=== PATIENT | male | born 1955 | race African-American/Black ===

== ENCOUNTER 2019-11-05 08:50 | Emergency (ER) | payer MEDICAID ==
[~2019-11-05] VITALS: Ht 180.3 cm; Wt 74.0 kg
[2019-11-05] MEDS ORDERED: IBUPROFEN 600MG TABLET PO ONE (09:45)
[2019-11-05 11:00] VITALS: BP 145/89
[2019-11-05 11:16] LABS: EOSINOPHILS % 0.8 % (0.0-5.0); HEMATOCRIT. 44.9 % (42.0-52.0); HEMOGLOBIN. 14.9 g/dL (14.0-18.0); MEAN CORPUSCULAR HEMOGLOBIN 30.8 pg (28.0-32.0); MEAN CORPUSCULAR VOLUME 92.9 fL (80.0-94.0); MONOCYTES % 8.4 % (2.0-8.0); NEUTROPHILS % 77.8 % (40.0-76.0); PLATELET 288 x1000/uL (130-400); RED BLOOD CELL COUNT 4.84 mill/uL (4.7-6.1); RED CELL DISTRIBUTION WIDTH 14.2 % (11.6-14.6)
[2019-11-05 11:46] LABS: CHLORIDE 108 mEq/L (98-107)
[2019-11-05 13:17] LABS: ETHANOL BLOOD < 10 mg/dL
== END 2019-11-05 11:40 | disposition left against medical advice (07) ==
LOC: ER 09:03
DX: M17.11 Unilateral primary osteoarthritis, right knee (principal); F10.229 Alcohol dependence with intoxication, unspecified; Y90.0 Blood alcohol level of less than 20 mg/100 ml
CPT/HCPCS: 36415; 73562; 80053; 80320; 85025; 93005; 99285; G0480

== ENCOUNTER 2019-12-12 14:00 | Emergency (ER) | payer MEDICAID ==
[~2019-12-12] VITALS: Ht 185.4 cm; Wt 87.0 kg
[2019-12-12 14:02] VITALS: BP 152/86
[2019-12-12] MEDS ORDERED: SODIUM CHLORIDE 0.9% 1,000 ML IV ONE (15:00)
[2019-12-12 15:10] LABS: BASOPHILS % 0.6 % (0.0-2.0); EOSINOPHILS % 0.8 % (0.0-5.0); HEMATOCRIT. 38.9 % (42.0-52.0); HEMOGLOBIN. 12.4 g/dL (14.0-18.0); LYMPHOCYTES % 19.4 % (20.0-50.0); MEAN CORPUSCULAR HEMOGLOBIN 29.5 pg (28.0-32.0); MEAN CORPUSCULAR VOLUME 92.6 fL (80.0-94.0); MEAN PLATELET VOLUME 7.2 fl (7.4-10.4); MONOCYTES % 8.4 % (2.0-8.0); NEUTROPHILS % 70.8 % (40.0-76.0); PLATELET 432 x1000/uL (130-400); RED CELL DISTRIBUTION WIDTH 14.4 % (11.6-14.6)
[2019-12-12 15:17] LABS: CHLORIDE 113 mEq/L (98-107)
[2019-12-12 15:21] LABS: ETHANOL BLOOD 15 mg/dL
== END 2019-12-12 15:14 | disposition left against medical advice (07) ==
LOC: ER 14:09
DX: G92 Toxic encephalopathy (principal); F16.10 Hallucinogen abuse, uncomplicated
CPT/HCPCS: 36415; 80053; 80307; 80320; 80329; 85025; 99283; G0480